=== PATIENT | male | born 1955 | race African-American/Black ===

== ENCOUNTER 2021-11-29 13:24 | Inpatient (IN) | payer OTHER ==
[2021-11-29] MEDS ORDERED: cefTRIAXone\\ROCEPHIN 2 GM VIAL ONE (13:53)
[2021-11-29] MEDS ORDERED: Cefepime 2 GM VIAL ONE (13:53)
[2021-11-29 13:57] LABS: Hemoglobin 14.1 g/dL (14.0-18.0); Mean Corpuscular HGB CONC 34.8 g/dL (32.0-36.0); Mean Corpuscular Hemoglobin 33.4 pg (27.0-31.0); Mean Corpuscular Volume 95.9 fL (78.0-98.0); Mean Platelet Volume 8.9 fL (7.4-10.4); Platelet Count 198 thou/uL (130-400); RBC Distribution Width 16.3 % (11.5-14.5); Red Blood Cell (RBC) Count 4.23 mill/uL (4.70-6.10); Reflex for Review?? YES; White Blood Cell (WBC) Count 52.4 thou/uL (4.8-10.8)
[2021-11-29 14:11] LABS: Anisocytosis SLIGHT = 6-15 cells (100X) (0-5/hpf); Band 4 % (5-11); Lymphocytes 14 % (21-51); MDiff Complete? YES; Neutrophil 78 % (42-75); Platelet Morphology Comment Appears Adequate; Polychromasia SLIGHT = 2-3 cells (100X) (0-2/hpf); Reactive Lymphocytes 3 % (0-10)
[2021-11-29 14:12] LABS: ALT (SGPT) 34 U/L (8-55); AST (SGOT) 31 U/L (5-34); Albumin 3.9 g/dL (3.4-4.8); Alkaline Phosphatase 336 U/L (40-110); Anion Gap 14 mmol/L (10-20); BUN (Urea Nitrogen) 16 mg/dL (8.4-25.7); Bilirubin, Total 0.6 mg/dL (0.2-1.2); Calc. Creatinine Clearance 0 mL/min (70-130); Calcium 9.4 mg/dL (7.8-10.44); Carbon Dioxide 18 mmol/L (23-31); Chloride 103 mmol/L (98-107); Globulin 4.2 g/dL (2.4-3.5); Glucose 154 mg/dL (80-115); Lipase 83 U/L (8-78); Magnesium 2.1 mg/dL (1.6-2.6); Protein, Total 8.1 g/dL (5.8-8.1); Sodium 131 mmol/L (136-145)
[2021-11-29] MEDS ORDERED: Vancomycin 1.5 GRAM/300 ML BAG 1.5 GM in Premix Bag 1 BAG IVPB SCH (15:00)
[2021-11-29] MEDS ORDERED: Iopamidol-370 76% 500 ML 1 ML ONE (15:22)
[2021-11-29 16:58] LABS: Lactic Acid 1.6 mmol/L (0.5-2.2)
[2021-11-29] MEDS ORDERED: Ondansetron ODT 4 MG TAB PO PRN (20:38)
[2021-11-29] MEDS ORDERED: Acetaminophen 650 MG Suppository PR PRN (20:38)
[2021-11-29] MEDS ORDERED: Acetaminophen 325 MG TAB PO PRN (20:38)
[2021-11-29] MEDS ORDERED: Ondansetron PF 4 MG/2 ML Vial IVP PRN (20:38)
[2021-11-29] MEDS: HYDROcodone/Acetaminophen 5/325 mg Tablet PO PRN (20:47)
[2021-11-29 21:44] LABS: ALT (SGPT) 29 U/L (8-55); AST (SGOT) 26 U/L (5-34); Albumin 2.9 g/dL (3.4-4.8); Alkaline Phosphatase 220 U/L (40-110); Anion Gap 10 mmol/L (10-20); BUN (Urea Nitrogen) 11 mg/dL (8.4-25.7); Bilirubin, Total 0.4 mg/dL (0.2-1.2); Calc. Creatinine Clearance 0 mL/min (70-130); Calcium 8.1 mg/dL (7.8-10.44); Carbon Dioxide 18 mmol/L (23-31); Chloride 109 mmol/L (98-107); Glucose 161 mg/dL (80-115); Potassium 3.8 mmol/L (3.5-5.1); Protein, Total 5.9 g/dL (5.8-8.1); Sodium 133 mmol/L (136-145)
[2021-11-29] MEDS: methylPREDNISolone Sod Succ 40 MG VIAL IVP SCH (22:12)
[2021-11-29 23:42] LABS: Bacteria/HPF None Seen HPF (None Seen); Bilirubin Negative (Negative); Blood, Urine Negative (Negative); Clarity Clear (Clear); Glucose, Urine (Dipstick) 50 mg/dL (Negative); Ketone, Urine Negative (Negative); Leukocyte 500 Leu/uL (Negative); Nitrite Negative (Negative); Protein, Urine (Dipstick) Negative (Neg-Trace); RBC/HPF 0-3 HPF (0-3); Specific Gravity, Urine 1.019 (1.002-1.036); Squamous Epithelial None Seen HPF (0-3); Urine Culture Reflex Yes Yes; Urobilinogen Normal mg/dL (Less than 2); Yeast-Budding 1+ HPF (None Seen)
[2021-11-30] MEDS: HYDROcodone/Acetaminophen 5/325 mg Tablet PO PRN ×4 (02:39→20:12)
[2021-11-30 02:47] VITALS: BMI 23.6
[2021-11-30] MEDS ORDERED: VANCOMYCIN 1.25 GM/250 ML BAG IVPB SCH (04:00)
[2021-11-30] MEDS: Cefepime 2 GM in Sodium Chloride 0.9% 100 ML IVPB SCH ×2 (04:00→14:21)
[2021-11-30] MEDS: VANCOMYCIN 1.25 GM/250 ML BAG 1.25 GM in Premix Bag 1 BAG IVPB SCH ×2 (04:40→14:56)
[2021-11-30 05:56] LABS: Anion Gap 10 mmol/L (10-20); BUN (Urea Nitrogen) 11 mg/dL (8.4-25.7); Calc. Creatinine Clearance 101 mL/min (70-130); Calcium 8.6 mg/dL (7.8-10.44); Carbon Dioxide 16 mmol/L (23-31); Chloride 110 mmol/L (98-107); Glucose 261 mg/dL (80-115); Potassium 4.1 mmol/L (3.5-5.1); Sodium 132 mmol/L (136-145)
[2021-11-30 06:49] LABS: Band 18 % (5-11); Hemoglobin 11.2 g/dL (14.0-18.0); Lymphocytes 3 % (21-51); MDiff Complete? YES; Mean Corpuscular Hemoglobin 32.6 pg (27.0-31.0); Mean Corpuscular Volume 95.9 fL (78.0-98.0); Mean Platelet Volume 8.8 fL (7.4-10.4); Monocytes 2 % (0-10); Neutrophil 77 % (42-75); Platelet Count 147 thou/uL (130-400); RBC Distribution Width 15.7 % (11.5-14.5); Red Blood Cell (RBC) Count 3.44 mill/uL (4.70-6.10)
[2021-11-30] MEDS: Enoxaparin Sodium 40 MG/0.4 ML SYRINGE SC SCH (08:38)
[2021-11-30] MEDS: methylPREDNISolone Sod Succ 40 MG VIAL IVP SCH (22:08)
[2021-12-01] MEDS: Cefepime 2 GM in Sodium Chloride 0.9% 100 ML IVPB SCH ×2 (02:47→14:42)
[2021-12-01 03:24] LABS: Vancomycin, Trough 12.8 ug/mL
[2021-12-01 03:42] LABS: ALT (SGPT) 28 U/L (8-55); AST (SGOT) 21 U/L (5-34); Albumin 3.4 g/dL (3.4-4.8); Alkaline Phosphatase 245 U/L (40-110); Anion Gap 14 mmol/L (10-20); BUN (Urea Nitrogen) 9 mg/dL (8.4-25.7); Bilirubin, Total 0.6 mg/dL (0.2-1.2); Calc. Creatinine Clearance 89 mL/min (70-130); Calcium 9.3 mg/dL (7.8-10.44); Carbon Dioxide 16 mmol/L (23-31); Chloride 106 mmol/L (98-107); Globulin 3.5 g/dL (2.4-3.5); Glucose 220 mg/dL (80-115); Magnesium 1.8 mg/dL (1.6-2.6); Protein, Total 6.9 g/dL (5.8-8.1); Sodium 132 mmol/L (136-145)
[2021-12-01 03:58] LABS: Hemoglobin 10.8 g/dL (14.0-18.0); Mean Corpuscular HGB CONC 32.9 g/dL (32.0-36.0); Mean Corpuscular Hemoglobin 31.7 pg (27.0-31.0); Mean Corpuscular Volume 96.5 fL (78.0-98.0); Mean Platelet Volume 8.7 fL (7.4-10.4); Platelet Count 165 thou/uL (130-400); White Blood Cell (WBC) Count 32.5 thou/uL (4.8-10.8)
[2021-12-01] MEDS: Vancomycin 1.5 GRAM/300 ML BAG 1.5 GM in Premix Bag 1 BAG IVPB SCH ×2 (04:04→17:25)
[2021-12-01 04:12] LABS: Band 21 % (5-11); Lymphocytes 2 % (21-51); MDiff Complete? YES; Monocytes 5 % (0-10); Neutrophil 72 % (42-75)
[2021-12-01] MEDS: Megestrol Acetate 800 MG/20 ML UDCUP PO SCH (09:37)
[2021-12-01] MEDS: Enoxaparin Sodium 40 MG/0.4 ML SYRINGE SC SCH (09:37)
[2021-12-01] MEDS: HYDROcodone/Acetaminophen 5/325 mg Tablet PO PRN ×2 (09:41→19:57)
[2021-12-01] MEDS: Pancrelipase DR 12,000 1 CAP PO SCH ×2 (12:20→17:26)
[2021-12-01] MEDS: methylPREDNISolone Sod Succ 40 MG VIAL IVP SCH (19:57)
[2021-12-02] MEDS: Cefepime 2 GM in Sodium Chloride 0.9% 100 ML IVPB SCH (02:46)
[2021-12-02] MEDS: Vancomycin 1.5 GRAM/300 ML BAG 1.5 GM in Premix Bag 1 BAG IVPB SCH (03:24)
[2021-12-02 07:36] LABS: ALT (SGPT) 36 U/L (8-55); AST (SGOT) 30 U/L (5-34); Albumin 3.3 g/dL (3.4-4.8); Alkaline Phosphatase 251 U/L (40-110); Anion Gap 11 mmol/L (10-20); BUN (Urea Nitrogen) 11 mg/dL (8.4-25.7); Bilirubin, Total 0.6 mg/dL (0.2-1.2); Calc. Creatinine Clearance 104 mL/min (70-130); Calcium 9.5 mg/dL (7.8-10.44); Carbon Dioxide 18 mmol/L (23-31); Chloride 108 mmol/L (98-107); Globulin 3.3 g/dL (2.4-3.5); Glucose 189 mg/dL (80-115); Magnesium 1.8 mg/dL (1.6-2.6); Potassium 3.8 mmol/L (3.5-5.1); Protein, Total 6.6 g/dL (5.8-8.1); Sodium 133 mmol/L (136-145)
[2021-12-02 07:51] LABS: Band 24 % (5-11); Hemoglobin 10.6 g/dL (14.0-18.0); Lymphocytes 8 % (21-51); MDiff Complete? YES; Mean Corpuscular HGB CONC 33.9 g/dL (32.0-36.0); Mean Corpuscular Hemoglobin 32.3 pg (27.0-31.0); Mean Corpuscular Volume 95.4 fL (78.0-98.0); Mean Platelet Volume 8.6 fL (7.4-10.4); Monocytes 10 % (0-10); Neutrophil 54 % (42-75); Platelet Count 183 thou/uL (130-400); Platelet Morphology Comment Appears Adequate; RBC Distribution Width 16.2 % (11.5-14.5); Reactive Lymphocytes 4 % (0-10); Red Blood Cell (RBC) Count 3.27 mill/uL (4.70-6.10); Target Cells SLIGHT = 2-5 cells (100X) (0-1/hpf); White Blood Cell (WBC) Count 31.4 thou/uL (4.8-10.8)
[2021-12-02] MEDS: Pancrelipase DR 12,000 1 CAP PO SCH (08:00)
[2021-12-02] MEDS: Megestrol Acetate 800 MG/20 ML UDCUP PO SCH (08:01)
[2021-12-02] MEDS: Enoxaparin Sodium 40 MG/0.4 ML SYRINGE SC SCH (08:01)
[2021-12-02] MEDS: HYDROcodone/Acetaminophen 5/325 mg Tablet PO PRN (08:01)
[2021-12-02 08:05] VITALS: BP 117/76; TEMP 97.8
== END 2021-12-02 12:35 | disposition home or self-care (01) | DRG 191 ==
LOC: ERS 13:24 → MSONC 15:59
PROVIDERS: ADMIT Internal Medicine; ATTEND Internal Medicine
DX: J44.1 Chronic obstructive pulmonary disease with (acute) exacerbation (principal); C25.9 Malignant neoplasm of pancreas, unspecified; E87.1 Hypo-osmolality and hyponatremia; M48.54XA Collapsed vertebra, not elsewhere classified, thoracic region, initial encounter for fracture; N13.8 Other obstructive and reflux uropathy; E44.0 Moderate protein-calorie malnutrition; Z20.822 Contact with and (suspected) exposure to COVID-19; I10 Essential (primary) hypertension; T45.8X5A Adverse effect of other primarily systemic and hematological agents, initial encounter; D72.829 Elevated white blood cell count, unspecified; F17.210 Nicotine dependence, cigarettes, uncomplicated; N40.1 Benign prostatic hyperplasia with lower urinary tract symptoms; R33.8 Other retention of urine; Z28.21 Immunization not carried out because of patient refusal; Z97.8 Presence of other specified devices; Z68.23 Body mass index [BMI] 23.0-23.9, adult; Z79.899 Other long term (current) drug therapy
CPT/HCPCS: 36415; 71045; 71275; 74177; 80048; 80053; 80202; 81001; 83605; 83690; 83735; 83880; 84484; 85025; 85060; 85730; 86850; 86900; 86901; 87040; 87086; 93005; 94640; 94760; 96365; 96367; 96375; J0692; J0696; J1650; J1956; J2920; J3370; J3490; J7620; Q9967; U0003; U0005

== ENCOUNTER 2022-04-17 08:32 | Inpatient (IN) | payer OTHER ==
[2022-04-17] MEDS ORDERED: Aspirin Chewable 81 MG TAB ONE (09:48)
[2022-04-17] MEDS ORDERED: Morphine 4 MG/ML VIAL ONE (09:48)
[2022-04-17] MEDS ORDERED: Ondansetron PF 4 MG/2 ML Vial ONE (09:48)
[2022-04-17 09:56] LABS: #Basophils 0.1 thou/uL (0.0-0.2); #Lymphocytes 2.3 thou/uL (1.20-3.40); #Monocytes 0.9 thou/uL (0.11-0.59); #Neutrophils 3.6 thou/uL (1.40-6.50); %Basophils 1.2 % (0.0-1.0); %Eosinophils 0.7 % (0.0-10.0); Hemoglobin 11.7 g/dL (14.0-18.0); Mean Corpuscular Hemoglobin 32.3 pg (27.0-31.0); Mean Platelet Volume 7.2 fL (7.4-10.4); Platelet Count 327 thou/uL (130-400); Red Blood Cell (RBC) Count 3.63 mill/uL (4.70-6.10)
[2022-04-17 10:07] LABS: ALT (SGPT) 13 U/L (8-55); AST (SGOT) 24 U/L (5-34); Albumin 2.7 g/dL (3.4-4.8); Alkaline Phosphatase 227 U/L (40-110); Anion Gap 13 mmol/L (10-20); BUN (Urea Nitrogen) 7 mg/dL (8.4-25.7); Bilirubin, Total 0.4 mg/dL (0.2-1.2); Calc. Creatinine Clearance 0 mL/min (70-130); Calcium 8.8 mg/dL (7.8-10.44); Carbon Dioxide 22 mmol/L (23-31); Chloride 105 mmol/L (98-107); Estimated GFR 103; Globulin 4.3 g/dL (2.4-3.5); Glucose 92 mg/dL (80-115); Lipase 25 U/L (8-78); Potassium 3.8 mmol/L (3.5-5.1); Sodium 136 mmol/L (136-145)
[2022-04-17] MEDS ORDERED: Azithromycin 500 MG VIAL ONE (11:39)
[2022-04-17] MEDS ORDERED: cefTRIAXone\\ROCEPHIN 1 GM VIAL ONE ×2 (11:39→11:41)
[2022-04-17] MEDS ORDERED: Iopamidol 370 76% 100 ML VIAL ONE (12:04)
[2022-04-17 12:58] LABS: SARS-CoV-2 NAA Rapid Test Not Detected (NotDetected)
[2022-04-17 12:59] VITALS: BMI 19.9
[2022-04-17] MEDS ORDERED: Ondansetron ODT 4 MG TAB SL PRN (13:00)
[2022-04-17] MEDS ORDERED: Acetaminophen 325 MG TAB PO PRN (13:00)
[2022-04-17] MEDS ORDERED: Ondansetron PF 4 MG/2 ML Vial IVP PRN (13:00)
[2022-04-17] MEDS ORDERED: Docusate 100 MG CAP PO PRN (14:28)
[2022-04-17] MEDS ORDERED: Electrolyte Replacement Protocol FS SCH (14:30)
[2022-04-17] MEDS: Morphine 4 MG/ML VIAL SLOW IVP PRN (14:44)
[2022-04-17] MEDS ORDERED: Morphine 2 MG/ML VIAL SLOW IVP SCH (17:00)
[2022-04-17] MEDS: Pancrelipase DR 12,000 1 CAP PO SCH (17:32)
[2022-04-17] MEDS: HYDROcodone/Acetaminophen 10/325 mg Tablet PO PRN (20:10)
[2022-04-17] MEDS: Zolpidem Tartrate 5 MG TAB PO PRN (21:30)
[2022-04-18] MEDS: Morphine 4 MG/ML VIAL SLOW IVP PRN ×4 (02:22→22:43)
[2022-04-18] MEDS: HYDROcodone/Acetaminophen 10/325 mg Tablet PO PRN ×3 (05:17→20:34)
[2022-04-18 06:08] LABS: #Eosinphils 0.1 thou/uL (0.0-0.7); #Lymphocytes 1.6 thou/uL (1.20-3.40); #Monocytes 0.7 thou/uL (0.11-0.59); #Neutrophils 2.2 thou/uL (1.40-6.50); %Basophils 0.5 % (0.0-1.0); %Eosinophils 2.7 % (0.0-10.0); %Lymphocytes 34.9 % (21.0-51.0); %Monocytes 14.7 % (0.0-10.0); %Neutrophils 47.2 % (42.0-75.0); Hemoglobin 13.3 g/dL (14.0-18.0); Mean Corpuscular HGB CONC 33.3 g/dL (32.0-36.0); Mean Corpuscular Hemoglobin 33.8 pg (27.0-31.0); Mean Platelet Volume 7.4 fL (7.4-10.4); Platelet Count 261 thou/uL (130-400); RBC Distribution Width 14.1 % (11.5-14.5); Red Blood Cell (RBC) Count 3.91 mill/uL (4.70-6.10); White Blood Cell (WBC) Count 4.6 thou/uL (4.8-10.8)
[2022-04-18 06:19] LABS: Anion Gap 10 mmol/L (10-20); BUN (Urea Nitrogen) 6 mg/dL (8.4-25.7); Calc. Creatinine Clearance 90 mL/min (70-130); Calcium 8.5 mg/dL (7.8-10.44); Carbon Dioxide 24 mmol/L (23-31); Chloride 106 mmol/L (98-107); Estimated GFR 103; Glucose 122 mg/dL (80-115); Magnesium 1.7 mg/dL (1.6-2.6); Sodium 136 mmol/L (136-145)
[2022-04-18] MEDS ORDERED: Magnesium 2 GM/50 ML(in water) 2 GM in Premix Bag 1 BAG IVPB SCH (08:00)
[2022-04-18 08:31] LABS: INR-International Normal Ratio 1.1; Prothrombin Time 14.3 sec (12.0-14.7)
[2022-04-18 08:32] LABS: PTT 26.5 sec (22.9-36.1)
[2022-04-18] MEDS ORDERED: Losartan 25 MG TAB PO SCH (09:00)
[2022-04-18] MEDS: Pancrelipase DR 12,000 1 CAP PO SCH ×3 (09:16→16:57)
[2022-04-18] MEDS: Losartan 25 MG TAB PO SCH (09:17)
[2022-04-18] MEDS: cefTRIAXone\\ROCEPHIN 1 GM in Sodium Chloride 0.9% 100 ML IVPB SCH (13:18)
[2022-04-18] MEDS ORDERED: Lidocaine 2% PF 5 ML VIAL ONE (13:52)
[2022-04-18] MEDS ORDERED: Sodium Bicarbonate 2.5 MEQ/5 ML VIAL ONE (13:52)
[2022-04-18] MEDS: Azithromycin 500 MG in Sodium Chloride 0.9% 250 ML 250 ML IVPB SCH (15:45)
[2022-04-18 16:21] LABS: Fluid, pH - Pleural Fld Greater than 7.50 (7.60 - 7.66)
[2022-04-18 16:25] LABS: RBC Count-Automated (BF) 345 /cu.mm; WBC/Nucleated-Auto (BF) 434 /cu.mm
[2022-04-18 16:40] LABS: BF Color Yellow; Body Fluid Source Thoracentesis Fluid; Clarity Clear (Clear); Tube # EDTA
[2022-04-18 16:41] LABS: BF Segmented Neutrophils 38 %; Cell Count Non Hematic 49 %; Eosinophils 3 %; Lymphocytes 10 %
[2022-04-18 16:48] LABS: Pleural Fluid, Protein 4.3 g/dL
[2022-04-18] MEDS: Zolpidem Tartrate 5 MG TAB PO PRN (20:42)
[2022-04-19] MEDS: Morphine 4 MG/ML VIAL SLOW IVP PRN ×3 (02:47→23:55)
[2022-04-19 05:51] LABS: #Eosinphils 0.2 thou/uL (0.0-0.7); #Lymphocytes 3.1 thou/uL (1.20-3.40); #Monocytes 1.1 thou/uL (0.11-0.59); #Neutrophils 3.2 thou/uL (1.40-6.50); %Basophils 0.6 % (0.0-1.0); %Eosinophils 2.6 % (0.0-10.0); %Lymphocytes 40.9 % (21.0-51.0); %Monocytes 14.7 % (0.0-10.0); %Neutrophils 41.2 % (42.0-75.0); Hemoglobin 11.2 g/dL (14.0-18.0); Mean Corpuscular HGB CONC 33.7 g/dL (32.0-36.0); Mean Corpuscular Hemoglobin 33.9 pg (27.0-31.0); Mean Platelet Volume 7.3 fL (7.4-10.4); Platelet Count 242 thou/uL (130-400); RBC Distribution Width 13.9 % (11.5-14.5); White Blood Cell (WBC) Count 7.7 thou/uL (4.8-10.8)
[2022-04-19 06:06] LABS: ALT (SGPT) 10 U/L (8-55); AST (SGOT) 17 U/L (5-34); Albumin 2.4 g/dL (3.4-4.8); Alkaline Phosphatase 201 U/L (40-110); Anion Gap 9 mmol/L (10-20); BUN (Urea Nitrogen) 6 mg/dL (8.4-25.7); Bilirubin, Total 0.2 mg/dL (0.2-1.2); Calc. Creatinine Clearance 94 mL/min (70-130); Calcium 8.3 mg/dL (7.8-10.44); Carbon Dioxide 25 mmol/L (23-31); Chloride 103 mmol/L (98-107); Estimated GFR 105; Glucose 101 mg/dL (80-115); Potassium 3.9 mmol/L (3.5-5.1); Protein, Total 6.4 g/dL (5.8-8.1); Sodium 133 mmol/L (136-145)
[2022-04-19] MEDS: HYDROcodone/Acetaminophen 10/325 mg Tablet PO PRN ×2 (08:37→17:37)
[2022-04-19] MEDS: Pancrelipase DR 12,000 1 CAP PO SCH ×3 (10:24→17:37)
[2022-04-19] MEDS: Losartan 25 MG TAB PO SCH (10:24)
[2022-04-19] MEDS: cefTRIAXone\\ROCEPHIN 1 GM in Sodium Chloride 0.9% 100 ML IVPB SCH (13:32)
[2022-04-19] MEDS: Azithromycin 500 MG in Sodium Chloride 0.9% 250 ML 250 ML IVPB SCH (14:44)
[2022-04-19] MEDS: Acetaminophen 325 MG TAB PO PRN (20:46)
[2022-04-19] MEDS: Amoxicillin/Potassium Clav 875 MG TAB PO SCH (20:46)
[2022-04-19] MEDS: Zolpidem Tartrate 5 MG TAB PO PRN (20:49)
[2022-04-20] MEDS: HYDROcodone/Acetaminophen 10/325 mg Tablet PO PRN (04:36)
[2022-04-20] MEDS: Amoxicillin/Potassium Clav 875 MG TAB PO SCH (08:34)
[2022-04-20] MEDS: Pancrelipase DR 12,000 1 CAP PO SCH ×2 (08:34→12:07)
[2022-04-20] MEDS: Losartan 25 MG TAB PO SCH (08:34)
[2022-04-20] MEDS: Morphine 4 MG/ML VIAL SLOW IVP PRN (08:37)
[2022-04-20 10:01] VITALS: BP 113/76; TEMP 98.5
[2022-04-20] MEDS: Acetaminophen 325 MG TAB PO PRN (12:44)
[2022-04-25 18:37] LABS: Fungus Stain Final report (.)
== END 2022-04-20 14:50 | disposition home or self-care (01) | DRG 435 ==
LOC: ERS 08:32 → MSONC 12:44 → OBSVTOIN 04-19 16:34
PROVIDERS: ADMIT Family Medicine; ATTEND Internal Medicine
PROC: 0W993ZZ Drainage of Right Pleural Cavity, Percutaneous Approach (ICD-10-PCS; principal; 2022-04-18)
DX: C25.9 Malignant neoplasm of pancreas, unspecified (principal); J96.01 Acute respiratory failure with hypoxia; J91.0 Malignant pleural effusion; C78.00 Secondary malignant neoplasm of unspecified lung; C77.9 Secondary and unspecified malignant neoplasm of lymph node, unspecified; Z51.5 Encounter for palliative care; I10 Essential (primary) hypertension; J44.9 Chronic obstructive pulmonary disease, unspecified; R33.9 Retention of urine, unspecified; F41.9 Anxiety disorder, unspecified; R25.1 Tremor, unspecified; R07.9 Chest pain, unspecified; Z20.822 Contact with and (suspected) exposure to COVID-19; Z79.899 Other long term (current) drug therapy; Z98.890 Other specified postprocedural states; Z90.49 Acquired absence of other specified parts of digestive tract; Z83.3 Family history of diabetes mellitus; Z80.0 Family history of malignant neoplasm of digestive organs; Z87.891 Personal history of nicotine dependence
CPT/HCPCS: 32555; 36415; 71045; 71275; 80048; 80053; 82150; 82945; 83605; 83615; 83690; 83735; 84157; 84443; 84484; 85025; 85060; 85379; 85610; 85730; 86301; 87040; 87070; 87116; 87205; 87206; 88112; 88305; 88341; 88342; 89051; 93005; 93306; 96374; 96375; 96376; G0378; J0456; J0696; J2001; J2270; J2405; J3475; J3490; J7050; Q9967; U0002